=== PATIENT | male | born 1930 | race Caucasian/White ===

== ENCOUNTER 2019-09-22 04:25 | Inpatient (IN) | payer OTHER ==
[~2019-09-22] VITALS: Ht 152.4 cm; Wt 70.0 kg
[2019-09-22] MEDS ORDERED: ASA81BEC PO (04:54)
[2019-09-22] MEDS ORDERED: LIPITOR 20 MG T20 M1 PO (04:55)
[2019-09-22] MEDS ORDERED: ZYRTEC10 MG PO (04:56)
[2019-09-22] MEDS ORDERED: VITAMIN D32000 UNI2 PO (04:58)
[2019-09-22] MEDS ORDERED: CILOSTAZOL 100100 M1 PO (05:00)
[2019-09-22] MEDS ORDERED: CELEXA20 MG PO (05:00)
[2019-09-22] MEDS ORDERED: VITAMIN B-121000 MC2 SUBLING (05:01)
[2019-09-22] MEDS ORDERED: SLOW FE142 MG PO (05:02)
[2019-09-22] MEDS ORDERED: PROSCAR 5MG TABL5 M1 PO (05:03)
[2019-09-22] MEDS ORDERED: GLIMEPIRIDE4 MG PO (05:03)
[2019-09-22] MEDS ORDERED: LEVO-T100 MCG PO (05:04)
[2019-09-22] MEDS ORDERED: LOSARTAN-HCTZ1 EAC3 PO (05:06)
[2019-09-22] MEDS ORDERED: TOPROL XL50 MG PO (05:07)
[2019-09-22] MEDS ORDERED: METFORMIN HCL500 M3 PO (05:07)
[2019-09-22] MEDS ORDERED: PANTOPRAZOLE SO40 M1 PO (05:08)
[2019-09-22] MEDS ORDERED: MULTI VITAMIN1 EACH PO (05:08)
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
[2019-09-22 05:46] VITALS: BP 149/67
[2019-09-22 08:30] VITALS: BP 103/58
--- NOTE | 2019-09-22 09:19 | NUR ---
SW called and left VM with spouse for follow up and assistance with intake assessment
--- NOTE | 2019-09-22 11:28 | NUR ---
ASSUMED CARE AT 0700 THIS MORNING. PT. SITTING IN W/C ON THE UNIT FOR BREAKFAST. WHEN GIVEN HIS MORNING MEDICATIONS, HE INITALLY CURSED AND STATED HE WAS NOT GOING TO TAKE THOSE [place] MEDICATIONS. HOWEVER, THE PATIENT DID TAKE HIS MEDICATIONS WITHOUT PROBLEMS. HE CONTINUED TO BE LOUD, BOISTEROUS, CURSING, ANGRY. HE GOT UP FROM HIS W/C AND GOT INTO THE RECLINING CHAIR AND WAS SET BACK TO RECLINE. HE WAS ALRIGHT WITH THIS FOR A BIT, BUT STARTED AGAIN, BEING LOUD, CURSING, ANGRY. ORDERED HALDOL 7.5 MG IM AND ATIVAN 1 MG IM. THESE WERE GIVEN TO HIM IN HIS LEFT DELTOID. THAT WORKED FOR HIM, HE WAS LESS LOUD AND STARTED SITTING QUIETLY. HIS CALLED FOR AN UPDATE ON THE PATIENT.
[2019-09-22 11:35] VITALS: BP 103/58
--- NOTE | 2019-09-22 12:45 | NUR ---
Sw spoke with pt's spouse Hawa , she described her as " smiling sandy" and these past 5 days are uncharacteristic of him. She wants to have him back in the home but without the physical and verbal aggression. SW completed the intake assessment and TP.
[2019-09-22 19:42] VITALS: BP 105/61
[2019-09-23 06:08] LABS: ABSOLUTE NEUTROPHILS 3.9 thou/uL (1.4-8.2); BASOPHILS 0.8 % (0.0-2.0); EOSINOPHILS 4.4 % (0.0-3.0); HEMATOCRIT 35.5 % (42.0-52.0); HEMOGLOBIN 12.3 gm/dL (14.0-18.0); LYMPHOCYTES 23.5 % (24.0-44.0); MCH 32.4 pg (26.0-34.0); MCHC 34.6 g/dL (28.0-37.0); MCV 93.6 fL (80.0-100.0); MONOCYTES 10.4 % (1.0-8.0); PLATELET COUNT 194 thou/uL (150-400); POLYS 60.9 % (36.0-66.0); RBC 3.79 mil/uL (4.50-6.00); RDW 13.1 % (10.5-14.5); WBC 6.4 thou/uL (4.0-11.0)
[2019-09-23 06:18] LABS: CALCIUM 9.1 mg/dL (8.5-10.1); CREATININE 1.3 mg/dL (0.7-1.3); MAGNESIUM 1.6 mg/dL (1.8-2.4); POTASSIUM 3.8 mmol/L (3.5-5.1)
[2019-09-23 06:55] LABS: FOLIC ACID 23.1 ng/mL (8.6-58.9); TSH 3.953 uIU/mL (0.358-3.740)
[2019-09-23 10:12] VITALS: BP 150/62
[2019-09-23 10:49] VITALS: BP 150/62
--- NOTE | 2019-09-23 13:00 | NUR ---
ASSUMED CARE AT 0700 THIS MORNING. PT. IN BED, REFUSED TO GET UP FOR BREAKFAST, BUT DID TAKE HIS MEDICATIONS WITHOUT PROBLEMS. ABOUT 0900 HE DID GET UP AND EAT BREAKFAST. HE HAS BEEN QUIETER TODAY THAN YESTERDAY, AND MORE COOPERATIVE WITH STAFF. HE HAS BEEN TALKING APPROPRIATELY WITH STAFF, NO SEXUAL OVERTONES.
--- NOTE | 2019-09-23 16:03 | NUR ---
Leif called Hawa to set up a family meeting 09/27/19 11:45 am
[2019-09-23 20:00] VITALS: BP 129/72
--- NOTE | 2019-09-23 23:51 | NUR ---
ASSUMED CARE ON 09/23/19 @ 19:15, IN ROOM IN BED, DROWSY BUT AWAKENED TO VOICE. HRRR, WHEN DEEP BREATHING FOR ASSESSMENT, COUGHED. ABD N X 4 Q. REPORTS BM TODAY. REPORTS THAT HAS LEG PAIN /, TYLENOL 650 PROVIDED, AND UPON REASSESSMENT, WAS SLEEPING. TOO MEDS WHOLE WITH WATER. DENIES SI AND HI. NO INDICATION OF AH OR VH. BED IN LOW POSITION, BED ALARM SET, WILL CONTINUE TO MONITOR Q 12 MINUTES FOR PATIENT SAFETY.
[2019-09-23 23:57] VITALS: BP 129/72
--- NOTE | 2019-09-24 05:45 | NUR ---
SLEPT 11 HOURS
[2019-09-24 07:00] VITALS: BP 138/68
[2019-09-24 09:55] VITALS: BP 138/68
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
--- NOTE | 2019-09-24 15:24 | NUR ---
SW completed a chart review. Pt is making slow gains. Likely d/c end of end if start to trend upwards in behaviors.
--- NOTE | 2019-09-24 15:52 | NUR ---
Up in WC without s/o distress. Calm and smiling. Alert and orienatated X2. Knows he is in hospital but is unable to state which one. Breath sounds clear t/o, bilaterally equal. Reg HR auscultated. Color pink with brisk capillary refill and palpable peripheral pulses. Incontinent of yellow urine. Active bowel sounds over soft, rounded abdomen. Able to stand and pivot with assistance but does not want to bear weight. 3 cm black circular lesion per left outer buttock. PT/OT here doing an evaluation. Continues to move around unit in wheel chair. No s/o distress or inappropriate behavior. Clarified with Dr. Moran that BG are BID before meals, breakfast and dinner.
[2019-09-24 20:56] VITALS: BP 101/62
--- NOTE | 2019-09-25 04:43 | NUR ---
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 HAS BEEN LYING IN BED ALL SHIFT, OTHER THAN FOR TOILETING. PLEASANT AND COOPERATIVE WITH ASSESSMENT PROCESS AND MEDS. NO ANGER OUTBURSTS THIS SHIFT, NO SEXUALLY INAPPROPRIATE COMMENTS. DENIES PAIN. NO C/O. NO APPARENT DISTRESS. WILL CONTINUE TO MONITOR.
[2019-09-25 09:01] VITALS: BP 121/49
[2019-09-25 09:24] VITALS: BP 121/49
--- NOTE | 2019-09-25 09:36 | NUR ---
ASSUMED CARE AT 0700 THIS MORNING. PT. IN BED, GOTTEN UP BY LEVEL VIAL INSPECTOR AND TESTER'S. HE IS SITTING IN W/C. HE IS PLEASANT AND COOPERATIVE. TOOK HIS MEDICATIONS WITHOUT DIFFICULTY. WAS SEEN BY Ramiro Milian THIS MORNING. ATE ON THE UNIT AND LISTED TO MUSIC WHEN PLAYED BY RT. STILL REFUSING TO TAKE A SHOWER ALTHOUGH ENCOURAGED TO DO SO. HE IS TALKING ABOUT DISCHARGE AND DESIRE TO RETURN HOME TO HIS .
[2019-09-25 19:42] VITALS: BP 126/58
--- NOTE | 2019-09-26 00:36 | NUR ---
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 WAS LYING IN BED WITH SHOES AND CLOTHES ON. SPACE CONTROL AGENT CONVINCED HIM TO TAKE OFF SHOES. TOLD STAFF WHEN HE HAD TO USE RESTROOM THIS EVENING, AND HAS NOT BEEN INCONTINENT OF THIS TIME. PLEASANT AND COOPERATIVE WITH ASSESSMENT PROCESS, MEDS, ALL CARES. NO C/O. NO APPARENT DISTRESS. WILL CONTINUE TO MONITOR.
--- NOTE | 2019-09-26 07:30 | NUR ---
Assumed care of patient this am. Patient sitting in wheelchair in [facility]. Patient happy and compliant. Patients affect relaxed. Patient takes medications whole with fluids. Patient denies pain. Patients assessment shows clear breath sounds, active bowel sounds, and s1 s2 heard with auscultation. Patient has an occasional gurgly cough.
[2019-09-26 08:00] VITALS: BP 100/50
[2019-09-26 08:49] VITALS: BP 100/50
--- NOTE | 2019-09-26 16:21 | NUR ---
SW completed a chart review and pt seems to be doing better daily. Family meeting is tomorrow and we will discuss his need for AL.
[2019-09-26 19:20] VITALS: BP 108/54
--- NOTE | 2019-09-27 02:38 | NUR ---
pt very pleasant and cooperative with care and meds. no concerns overnight. pt able to use the bsc and go to the bathroom at times. denies pain. denies si/hi. sleeping soundly with minimal bathroom interruptions. no s/s of distress. will cont to monitor
--- NOTE | 2019-09-27 09:33 | NUR ---
SW completed a chart review and pt is compliant with medication and staff note a change in mood and behavior. This will impact d/c planning. Will have more direction after the family meeting today
[2019-09-27 09:46] VITALS: BP 140/59
--- NOTE | 2019-09-27 11:09 | NUR ---
COMPLIENT WITH AM MEDICATIONS AND ASSESSMENT-DENIES C/O PAIN/DISCOMFORT. DENIES SI/SH/HI. ORIENTED TO PERSON AND AWARE HE IS IN HOSPITAL BUT STATES HE DOES NOT KNOW WHY HE IS HERE. USING WC TO GET TO AND FROM DAYROOM-REQUIRES SBA X1 FOR TRANSFERS. INCONTINE NT OF URINE X1-OTHERWISE WILL USE TPOILET OR URINAL. AFFECT CONSTRICTED. NO NOTED PEER CONTACT-REFUSED AM GROUP INSISTING HE WAS TOO TIRED AND WANTED TO RETURN TO ROOM. BECAME AGITATED WITH ATTEMPTS TO COHERCE HIM TO GO TO GROUP STATING VEHEMENTLY "NO" AND WHEELING SELF BACK TO ROOM.
[2019-09-27 12:04] LABS: CALCIUM 9.8 mg/dL (8.5-10.1); CREATININE 1.3 mg/dL (0.7-1.3); POTASSIUM 4.3 mmol/L (3.5-5.1)
--- NOTE | 2019-09-27 13:13 | NUR ---
DAVIE met with Dr Dawson and son and spouse for a family meeting. Dr Dawson reported on meds and labs and provide his d/c recomendations . This included LTC. Spouse and son had concerns about costs, DAVIE eduated them on the Medicaid process and provided them with a list of Medicaid nursing homes. They will be looking into them and will get back to this SW by TR with 5 to choose from . DAIVE educated them on the d/c process and the urgency and effort needed for placement. They agreed and will be assisting with this process. DAVIE sent the DA 124 abc to [facility] and a request for a Medicaid screen with [employer].
[2019-09-27 20:09] VITALS: BP 162/54
--- NOTE | 2019-09-27 21:51 | NUR ---
Care assumed of patient at 1915: Patient lying in bed at start of shift. Patient up to use bedside commode with staff assist x1. Mod assist x1 due to unsteady gait and poor balance. Denies pain or discomfort. Alert and oriented x3. Patient did request to stay up to get HS snack but then declined snack. Patient sat in dayroom for approximately 1 hour but didn't interact with others. Took HS medication whole without difficulty. Pleasant and cooperative with staff this evening. Denies SI/HI/AH/VH. No aggression or agitation observed. Patient retired to bed at a reasonable hour and has been resting quietly since.
--- NOTE | 2019-09-28 07:30 | NUR ---
Assumed care of patient this am. Patient in good spirits, smiling, relaxed. Patient in wheel chair sitting in mileu at table. Patient denies pain. Patient takes medications whole in pudding or yogurt. Patient can ambulate with walker with assistance. Patients assessment shows clear breath sounds, active bowel sounds, and s1 s2 heard with auscultation.
[2019-09-28 08:00] VITALS: BP 119/59
[2019-09-28 09:21] VITALS: BP 119/59
--- NOTE | 2019-09-28 12:36 | NUR ---
During treatment team meeting this AM, and chart review- this pt will be ready to d/c next week but waiting for placement suggestions from family. Will f/u with them tomorrow and will send referrals when requested.
[2019-09-28 20:21] VITALS: BP 115/50
--- NOTE | 2019-09-28 23:39 | NUR ---
ASSUMED CARE ON 09/28/19 @ 19:15, IN BED, AWAKE ALERT ORIENTED X 3-4 REPORTS THIS HOSPITAL IS [facility], WHEN GIVEN THE HOSPITAL NAME HE REPLIED, OH YES, THATS RIGHT. REPORTS BM ON 09/27. CALM AND CONTENT, DENIES NEEDS. COOPERATED WITH ASSESSMENT, TOOK MEDS WHOLE WITH A SPOONFUL OF YOGART. IN BED AT THIS TIME, BED IN LOW POSITION, BED ALARM SET. RESPIRATIONS EVEN AND UNLABORED.
--- NOTE | 2019-09-29 05:45 | NUR ---
SLEPT 7.2 HOURS
[2019-09-29 09:35] VITALS: BP 139/57
[2019-09-29 09:40] VITALS: BP 139/57
[2019-09-29 09:56] VITALS: BP 139/57
--- NOTE | 2019-09-29 13:09 | NUR ---
SW spoke with son Kaden and spouse and she stated they had visited a few LTC and while RW ot the [facility], she thought her spouse would be happier at [facility] because they have a relative who lives there lTC. DAVIE called Megan Mahan from [facility] and left a VM. Then sent the referral via fax.
--- NOTE | 2019-09-29 15:00 | NUR ---
Assumed care this morning 0700. Patient alert and oriented x3. Calm and cooperative. Took breakfast and his medicaitons without any problem. Patient has good appetite and takes meds whole with yogurt. Patient goes back to his room after activities and group work. Pleasant, no HI, no SI. Will continue with the plan of care.
[2019-09-29 19:37] VITALS: BP 125/62
--- NOTE | 2019-09-29 22:13 | NUR ---
Care assumed of patient at 1915: Patient alert and oriented to person only. Patient resting in bed thus far this shift. Patient yelling, angry, cursing throughout this evening. Patient delusional and paranoid about his "sleeping around" and "she just wanted to dump me here". Patient confused and forgetful this shift. Patient demanding "a cigarette". Patient oriented to being in the hospital. Patient started to curse at nurse to get out of his room. Patient was able to be consoled by male nurse present. Patient asking staff if they are his "friend". No physical aggression shown. Denies SI/HI/AH/VH. Did report pain generalized, Tylenol PRN effective. Patient took his HS medication whole without difficulty. Patient has been labile throughout the evening. Patient resting quietly in bed at this time.
[2019-09-30 07:15] VITALS: BP 129/54
[2019-09-30 08:00] VITALS: BP 129/54
--- NOTE | 2019-09-30 11:58 | NUR ---
Nutrition: pt admit w/ increased agitation and aggressive behaviors. Seen due to LOS. 09/28 Videoswallow indicated mild-moderate dypshagia and pt on mechanical soft diet with no mixed consistency, regular liquids. Intake is documented 75-100% most meals with 2 meal refusals past 24 hrs. Overall appetite has been very good. Pt was unable to provide foods prefs and states he likes the food her. Noted multiple recent weights of 160# then 151# on 09/24. ? accuracy. Pt reports stable weights around 160#. REC re-weigh due to discrepancy. Consider low nutrition risk.
--- NOTE | 2019-09-30 12:39 | NUR ---
PT IN HIS ROOM YELLING. PT WAS YELLING AT HIS SAYING SHE WAS A BITCH. PT IN BED WITH ALARM ON.
--- NOTE | 2019-09-30 13:56 | EKG ---
[place] [address] [facility] [place] [address] ELECTROCARDIOGRAM REPORT Name: ADELITA HARDIN Room #: 517-A ADM IN M.R.#: [id number] Admission: 09/22/19 Attend Phys: Judah Dawson DO Discharge: Date of : 32 Report #: [id number] THIS REPORT FOR: //name// [facility] Test Date: 2019-09-30 Test Time: 09:40:21 Pat Name: ADELITA HARDIN Department: Room: 517 A Gender: M Intelligence Agent: Edy MCGARRY : [id number] Requested By: Judah Dawson Order Number: [id number] MD: Mauricio Bone Measurements Intervals Tatamy Rate: 70 P: 56 PA: 187 QRS: -79 QRSD: 175 T: 99 QT: 461 QTc: 498 Interpretive Statements Ventricular-paced rhythm No further analysis attempted due to paced rhythm No previous ECG available for comparison Electronically Signed On 09-30-2019 13:55:55 CRIMINAL LEGAL ASSISTANT by Mauricio Bone [email or web address] <ELECTRONICALLY SIGNED> By: Mauricio Bone MD 09/30/19 1355 9 9 Mauricio Bone MD /LEAH
--- NOTE | 2019-09-30 13:58 | NUR ---
Davie called [facility] and left a for Megan juarez and reported that pt could d/c Thursday and that updates will be sent this . DAVIE then called Hawa , and then she reported that she will be taking her home. She stated that she has " made up her mind" and feels too guilty. She stated that her son disagrees with her but that her daughters will come up and help her every so often. Davie attempted to provide education and reinforced that this would not likely have a positive outcome. Hawa stated that she called the hospital earlier today and told someone this. Unfortunetly she did not tell this SW until this PM. DAVIE will follow up with Dr baires and make the necessary changes.
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
[2019-09-30 14:32] VITALS: BP 125/62
--- NOTE | 2019-09-30 14:33 | NUR ---
PT RESTING AT THIS TIME. PT HAS BEEN UP IN W/C ROLLING SELF AROUND. PT NEEDS ASSISTANCE WITH TRANSFERS. PT DENIED ANY PAIN AT THIS TIME.
[2019-09-30 19:55] VITALS: BP 113/55
--- NOTE | 2019-09-30 22:05 | NUR ---
Care assumed of patient at 1915: Patient resting in bed at start of shift. Easily aroused. Patient calm, pleasant and cooperative. When asked if he had any concerns, he stated "I gotta pee!". Patient assisted to bedside commode, continent of bladder. Reported generalized pain. Administered PRN Tylenol, patient sleeping on follow up. Patient able to interact with nurse appropriately. Answered questions appropriately. Pleasantly confused and forgetful. Denies SI/HI/AH/VH. No aggression, agitation or anxiety observed. Patient took HS medication whole without difficulty. Politely declined HS snack. Patient has been able to rest quietly in bed without issue to report at this time.
--- NOTE | 2019-10-01 07:30 | NUR ---
Assumed care of patient this am. Patient in good spirits, smiling, and relaxed. Patient ambulates via wheelchair. Patient takes meds whole with applesauce or pudding. Patient denies pain. Patients affect soft and relaxed. Patients assessment shows clear breath sounds, active bowel sounds and s1 s2 heard with auscultation.
[2019-10-01 08:00] VITALS: BP 134/67
[2019-10-01 08:25] VITALS: BP 134/67
[2019-10-01] MEDS ORDERED: HALOPERIDOL 1 MG1 MG PO (10:38)
--- NOTE | 2019-10-01 11:34 | NUR ---
Patient discharged to home with . Patient transported to vehicle via wheel chair. Patients belongings accounted for and sent with patient. Patients prescription and discharge paperwork sent with .
--- NOTE | 2019-10-03 12:22 | NUR ---
DAVIE called and was redirected to the urgent care center, who cannot set up appointments. Due to the holiday today all of the clinics are closed again. Will call back tomorrow and finish this discharge [phone]
--- NOTE | 2019-10-04 08:51 | NUR ---
LEIF called [facility] and spoke with Chema LOZA. He set up an appointment for pt for 10/05/19 at 10am. Leif faxed d/c summary and orders to [phone]. Leif called and left a vm with pt to report the Dr house. LEIF then called pt's insurance [employer] and they provided Dr Avendaño at [facility] for an in [facility] psychiatrist [phone]. Leif called and attempted to set up an appointment but this agency only takes walk ins for first time patients. All of this information had been reported to family when they discharged.
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
== END 2019-10-01 11:20 | disposition home or self-care (01) | DRG 57 ==
LOC: SBH
PROVIDERS: Nurse Practitioner; ADMIT Psychiatry & Neurology Psychiatry
DX: G30.9 Alzheimer's disease, unspecified (principal); F01.51 Vascular dementia, unspecified severity, with behavioral disturbance; N18.3 Chronic kidney disease, stage 3 (moderate); F02.81 Dementia in other diseases classified elsewhere, unspecified severity, with behavioral disturbance; I13.0 Hypertensive heart and chronic kidney disease with heart failure and stage 1 through stage 4 chronic kidney disease, or unspecified chronic kidney disease; E11.22 Type 2 diabetes mellitus with diabetic chronic kidney disease; I25.10 Atherosclerotic heart disease of native coronary artery without angina pectoris; I50.9 Heart failure, unspecified; E11.51 Type 2 diabetes mellitus with diabetic peripheral angiopathy without gangrene; I27.20 Pulmonary hypertension, unspecified; E03.9 Hypothyroidism, unspecified; Z87.891 Personal history of nicotine dependence; I25.5 Ischemic cardiomyopathy; E78.2 Mixed hyperlipidemia; N40.0 Benign prostatic hyperplasia without lower urinary tract symptoms; Z23 Encounter for immunization; Z95.1 Presence of aortocoronary bypass graft; Z95.0 Presence of cardiac pacemaker; Z86.718 Personal history of other venous thrombosis and embolism; Z79.01 Long term (current) use of anticoagulants; Z90.49 Acquired absence of other specified parts of digestive tract; Z95.5 Presence of coronary angioplasty implant and graft; Z80.6 Family history of leukemia; Z82.5 Family history of asthma and other chronic lower respiratory diseases; Z80.0 Family history of malignant neoplasm of digestive organs; Z84.1 Family history of disorders of kidney and ureter
CPT/HCPCS: 10880